=== PATIENT | male | born 1975 | race Caucasian/White ===

== ENCOUNTER 2017-06-10 15:47 | Emergency (ER) | payer OTHER ==
[~2017-06-10] VITALS: Ht 185.4 cm; Wt 95.2 kg
--- NOTE | ~2017-06-10 | CR252 ---
[facility] A Service of [facility] RADIOLOGY TEXT RESULTS PATIENT: FERN THAO LOCATION: CFTX : 71 UNIT #: [id number] AGE: [address]: Johanna Kaplan APRN SEX: M ORDER DR: [id number] [facility] [address] [place], [place] [address] [id number] E MR#: [id number] Acc #: [id number] NAME: FERN THAO. : 1975 SEX: M STUDY DATE/TIME: 06/10/2017 16:27 UNIT: [facility] ROOM: STUDY DESCRIPTION: CR Tibia and Fibula 2 Views Lt Attending Physician: Johanna Kaplan A.P.R.N. Ordering Physician: Landon Esparza M.D. Primary Care Physician: Primary Care Physician No MEDICAL IMAGING REPORT This report is preliminary unless electronic signature is present EXAM Two views left tibia and fibula 06/10/2017 HISTORY Left lower extremity pain and laceration today. FINDINGS Suspected laceration defect along the ilh-cn-djotcu aspect of the left tibia medially. No retained radiopaque foreign body. No fracture. No joint dislocation or significant osteophytic change. IMPRESSION Suspected soft tissue laceration defect along the ysx-ru-myfmjy aspect of the left tibia posteromedially. No acute osseous abnormality or retained radiopaque foreign body. Dictated by... Alissa Rowland M.D. THIS IS AN ELECTRONICALLY VERIFIED REPORT Alissa Rowland M.D. at 06/12/2017 9:51 AM ETTA/kirsten TD: 06/11/2017 12:58 JOB #: [id number] MEDICAL IMAGING REPORT Page 1 of 1 COPY
[~2017-06-10 15:47] MED LIST: KEFLEX PO; TYLOX 5/500 CAP1 CAP PO
== END 2017-06-10 18:30 | disposition home or self-care (01) ==
LOC: CFTX 15:47 → CED 15:47 → CFTX 16:13
DX: S81.812A Laceration without foreign body, left lower leg, initial encounter (principal); F17.210 Nicotine dependence, cigarettes, uncomplicated; Z23 Encounter for immunization; Z79.899 Other long term (current) drug therapy; W22.8XXA Striking against or struck by other objects, initial encounter; Y92.410 Unspecified street and highway as the place of occurrence of the external cause
CPT/HCPCS: 12032; 73590; 90471; 90715; 99283